=== PATIENT | male | born 1985 | race Caucasian/White ===

== ENCOUNTER 2020-03-02 01:43 | Emergency (ER) | payer MEDICAID ==
[2020-03-02] MEDS ORDERED: Ondansetron 4 MG/2 ML SDV IVPUSH ONE (02:01)
[2020-03-02] MEDS ORDERED: Sodium Chloride 0.9% 1,000 ML IV ONE (02:01)
[2020-03-02 02:34] LABS: CHLORIDE,CL 101 mmol/L (98-107); SODIUM,NA 140 mmol/L (136-145)
[2020-03-02] MEDS ORDERED: Iopamidol 612 MG/ML 100 ML Bottle IVPUSH ONE (02:55)
--- NOTE | 2020-03-02 03:59 | EDM.PDOC ---
ED HPI GENERAL MEDICAL PROBLEM - General Chief Complaint: Abdominal Pain Stated Complaint: Abd pain Time Seen by Provider: 03/02/20 02:00 Source of Information: Reports: Patient History Limitations: Reports: No Limitations - History of Present Illness INITIAL COMMENTS - FREE TEXT/NARRATIVE: Pt presents with diffuse abdominal pain Pain began an hour after smoking a large amount of marijuana No fever No N/V/D No trauma Pain is intermittent and moves around by pt report Onset: Today, Sudden Duration: Hour(s): Location: Reports: Abdomen Quality: Reports: Stabbing Severity: Moderate Left Shoulder Pain Score (Numeric/FACES): 4 - Related Data Allergies Allergy/AdvReac Type Severity Reaction Status Date / Time No Known Allergies Allergy Verified 03/02/20 01:53 Home Meds: Home Meds . [No Known Home Meds] 03/02/20 [History] Past Medical History Musculoskeletal History: Reports: Fracture Social & Family History - Tobacco Use Smoking Status *Q: Current Every Day Smoker Years of Tobacco use: 15 Packs/Tins Daily: 0.5 - Caffeine Use Caffeine Use: Reports: None - Recreational Drug Use Recreational Drug Use: Yes Recreational Drug Type: Reports: Marijuana/Hashish Recreational Drug Use Frequency: Daily ED ROS GENERAL - Review of Systems Review Of Systems: See Below Constitutional: Reports: No Symptoms HEENT: Reports: No Symptoms Respiratory: Reports: No Symptoms Cardiovascular: Reports: No Symptoms GI/Abdominal: Reports: Abdominal Pain Musculoskeletal: Reports: No Symptoms ED EXAM, GI/ABD - Physical Exam Exam: See Below Exam Limited By: No Limitations General Appearance: Alert, WD/WN, Mild Distress Throat/Mouth: Normal Oropharynx Neck: Supple Respiratory/Chest: Lungs Clear Cardiovascular: Regular Rate, Rhythm GI/Abdominal Exam: Soft, No Distention, No Mass, Tender Course - Vital Signs Last Recorded V/S: Last Vital Signs Temp 98.7 F 03/02/20 01:44 Pulse 115 H 03/02/20 01:44 Resp 12 03/02/20 01:44 BP 139/93 H 03/02/20 01:44 Pulse Ox 99 03/02/20 01:44 - Orders/Labs/Meds Orders: Active Orders 24 hr Category Date Time Status Abdomen Pelvis w Cont [CT] Stat Exams 03/02/20 02:37 Taken UA W/MICROSCOPIC [URIN] Stat Lab 03/02/20 02:02 Ordered Labs: Laboratory Tests 03/02/20 03/02/20 Range/Units 02:11 02:11 WBC 17.7 H (4.0-10.2) K/uL RBC 5.18 (4.33-5.41) M/uL Hgb 15.6 (13.1-16.8) g/dL Hct 45.1 (39.0-49.0) % MCV 87.1 (84.0-98.0) fL MCH 30.1 (28.2-33.3) pg MCHC 34.6 (31.7-36.0) g/dL RDW 12.8 (11.2-14.1) % Plt Count 264 (150-350) K/uL Neut % (Auto) 86.7 H (45.0-80.0) % Lymph % (Auto) 7.7 L (10.0-50.0) % [place] % (Auto) 5.2 (2.0-14.0) % Eos % (Auto) 0.2 (0.0-5.0) % Baso % (Auto) 0.2 (0.0-2.0) % Neut # (Auto) 15.39 H (1.40-7.00) K/uL Lymph # (Auto) 1.36 (0.50-3.50) K/uL [place] # (Auto) 0.92 (0.00-1.00) K/uL Eos # (Auto) 0.03 (0.00-0.50) K/uL Baso # (Auto) 0.03 (0.00-0.20) K/uL Sodium 140 (136-145) mmol/L Potassium 3.9 (3.5-5.1) mmol/L Chloride 101 (98-107) mmol/L Carbon Dioxide 26.9 (21.0-32.0) mmol/L BUN 13 (7-18) mg/dL Creatinine 0.96 (0.51-1.17) mg/dL Est Cr Clr Drug Dosing 95.68 mL/min Estimated GFR (MDRD) > 60 mL/min Glucose 122 H (74-106) mg/dL Calcium 8.4 L (8.5-10.1) mg/dL Total Bilirubin 0.3 (0.2-1.0) mg/dL AST 18 (15-37) U/L ALT 28 (12-78) U/L Alkaline Phosphatase 117 H (46-116) IU/L Total Protein 7.5 (6.4-8.2) g/dL Albumin 4.2 (3.4-5.0) g/dL Amylase 26 (25-115) U/L Lipase 49 L (73-393) U/L Meds: Medications Discontinued Medications Generic Name Dose Route Start Last Admin Trade Name Saad PRN Reason Stop Dose Admin Sodium Chloride 1,000 mls @ 999 mls/hr 03/02/20 02:01 03/02/20 02:22 Normal Saline IV 03/02/20 03:01 999 mls/hr .BOLUS ONE Administration Iopamidol 100 ml 03/02/20 02:55 03/02/20 03:31 Isovue-300 (61%) IVPUSH 03/02/20 02:56 100 ml ONETIME ONE Administration Ondansetron HCl 4 mg 03/02/20 02:01 03/02/20 02:22 Zofran IVPUSH 03/02/20 02:02 4 mg ONETIME ONE Administration - Re-Assessments/Exams Free Text/Narrative Re-Assessment/Exam: 03/02/20 03:57 CT: No acute pathology See lab Pt given IVF and IV Zofran in ER Departure - Departure Time of Disposition: 04:00 Disposition: Home, Self-Care 01 Clinical Impression: Abdominal pain Qualifiers: Abdominal location: generalized Qualified Code(s): R10.84 - Generalized abdominal pain - Discharge Information *PRESCRIPTION DRUG MONITORING PROGRAM REVIEWED*: Not Applicable *COPY OF PRESCRIPTION DRUG MONITORING REPORT IN PATIENT PREET: Not Applicable Instructions: Abdominal Pain, Adult, [id number] Referrals: PCP,None [Primary Care Provider] - Additional Instructions: Follow up in clinic Diet as tolerated Sepsis Event Note (ED) - Evaluation Sepsis Screening Result: No Definite Risk - Focused Exam Vital Signs: Vital Signs Temp Pulse Resp BP Pulse Ox 03/02/20 01:44 98.7 F 115 H 12 139/93 H 99 - My Orders Last 24 Hours: My Active Orders 03/02/20 02:02 UA W/MICROSCOPIC [URIN] Stat 03/02/20 02:37 Abdomen Pelvis w Cont [CT] Stat - Assessment/Plan Last 24 Hours: My Active Orders 03/02/20 02:02 UA W/MICROSCOPIC [URIN] Stat 03/02/20 02:37 Abdomen Pelvis w Cont [CT] Stat
== END 2020-03-02 04:05 | disposition home or self-care (01) ==
LOC: LL.ED 01:43
DX: R10.84 Generalized abdominal pain (principal); F17.210 Nicotine dependence, cigarettes, uncomplicated
CPT/HCPCS: 36415; 74177; 80053; 81001; 82150; 83690; 85025; 96361; 96374; 99284; J2405; J7030; Q9967